=== PATIENT | female | born 1980 | race Caucasian/White ===

== ENCOUNTER 2018-06-24 16:10 | Emergency (ER) | payer OTHER ==
[~2018-06-24] VITALS: Ht 170.2 cm; Wt 89.4 kg
[~2018-06-24 16:10] MED LIST: DIFLUCAN150 MG PO; FLAGYL500 MG PO; NAPROSYN500 MG PO; NORCO 5-325 TA1 EACH PO; SKELAXIN 800 M800 M1 PO; VYVANSE50 MG PO; ZOLOFT 50 MG TA50 M1 PO
[2018-06-24 16:11] VITALS: BP 139/85
[2018-06-24] MEDS ORDERED: CORTISPORIN OTI10 M2 OTIC (17:21)
== END 2018-06-24 17:24 | disposition home or self-care (01) ==
LOC: ER 16:10
DX: H60.91 Unspecified otitis externa, right ear (principal); Z88.2 Allergy status to sulfonamides; F90.9 Attention-deficit hyperactivity disorder, unspecified type

== ENCOUNTER 2018-11-09 10:49 | Emergency (ER) | payer OTHER ==
[~2018-11-09] VITALS: Ht 170.2 cm; Wt 86.2 kg
[~2018-11-09 10:49] MED LIST changes: +CORTISPORIN OTI10 M2 OTIC
[2018-11-09] MEDS ORDERED: XANAX1 MG PO (11:00)
[2018-11-09] MEDS ORDERED: ZYRTEC10 M5 PO (11:00)
[2018-11-09] MEDS ORDERED: TESSALON PERLE100 MG PO (11:59)
[2018-11-09 12:20] VITALS: BP 134/70
== END 2018-11-09 12:37 | disposition home or self-care (01) ==
LOC: ER 10:49
DX: J06.9 Acute upper respiratory infection, unspecified (principal); F90.9 Attention-deficit hyperactivity disorder, unspecified type; Z88.2 Allergy status to sulfonamides

== ENCOUNTER 2020-01-11 20:08 | Emergency (ER) | payer OTHER ==
[~2020-01-11] VITALS: Ht 170.2 cm; Wt 91.2 kg
[~2020-01-11 20:08] MED LIST changes: +TESSALON PERLE100 MG PO; +XANAX1 MG PO; +ZYRTEC10 M5 PO
[2020-01-11] MEDS ORDERED: IBUPROFEN 800800 M1 PO (21:24)
[2020-01-12 03:59] VITALS: BP 103/43
== END 2020-01-11 22:58 | disposition home or self-care (01) ==
LOC: ER 20:08
DX: S93.491A Sprain of other ligament of right ankle, initial encounter (principal); S90.31XA Contusion of right foot, initial encounter; F90.9 Attention-deficit hyperactivity disorder, unspecified type; Z88.2 Allergy status to sulfonamides; W10.9XXA Fall (on) (from) unspecified stairs and steps, initial encounter; Y92.89 Other specified places as the place of occurrence of the external cause; Y93.89 Activity, other specified; Y99.8 Other external cause status